=== PATIENT | female | born 1980 | race Caucasian/White ===

== ENCOUNTER 2019-12-14 11:41 | Inpatient (IN) | payer BC, SELFPAY ==
[~2019-12-14] VITALS: Ht 160 cm; Wt 69.4 kg
[2019-12-14] MEDS ORDERED: LR 1,000 ML IV ONE (12:30)
[2019-12-14] MEDS ORDERED: AMPICILLIN SODIUM 2 GM in NS 100 ML IV ONE (12:30)
[2019-12-14] MEDS ORDERED: DINOPROSTONE 10 MG SUPP VG ONE (12:30)
[2019-12-14] MEDS ORDERED: LR 1,000 ML IV SCH (12:30)
[2019-12-14] MEDS ORDERED: TERBUTALINE SULFATE 1 MG/ML VIAL SUBCUT ONE (12:30)
[2019-12-14 13:06] LABS: BASOPHILS # (AUTO) 0.1 K/uL (0.0-0.2); BASOPHILS % (AUTO) 1.2 % (0.0-2.0); EOSINOPHILS # (AUTO) 0.1 K/uL (0.0-0.4); EOSINOPHILS % (AUTO) 0.7 % (0.0-4.0); HEMATOCRIT 37.1 % (36-48); HEMOGLOBIN 12.7 g/dL (12.0-16.0); LYMPHOCYTES # (AUTO) 1.8 K/uL (1.0-5.5); LYMPHOCYTES % (AUTO) 16.2 % (20.5-51.5); MEAN CORPUSCULAR HEMOGLOBIN 31 pg (27-31); MEAN CORPUSCULAR HGB CONC 34 % (32-36); MEAN CORPUSCULAR VOLUME 90 fL (79.0-98.0); MONOCYTES # (AUTO) 0.9 K/uL (0.0-1.0); MONOCYTES % (AUTO) 8.2 % (1.7-9.3); NEUTROPHILS # (AUTO) 8.4 K/uL (1.8-7.7); NEUTROPHILS % (AUTO) 73.7 % (40.0-70.0); PLATELET COUNT (AUTO) 170 K/uL (130-430); RED BLOOD CELL COUNT(AUTO) 4.11 MIL/uL (4.2-6.2); RED CELL DISTRIBUTION WIDTH 13.1 % (9.0-15.0); WHITE BLOOD COUNT (AUTO) 11.4 K/uL (4.8-10.8)
[2019-12-14 14:46] VITALS: BP_SYST 114
[2019-12-14] MEDS ORDERED: FLU VACC QS2020-21 (6 mos & up) 0.5 ML/SYRINGE I.M. PRN (15:00)
[2019-12-14] MEDS: MORPHINE SULFATE 10 MG/ML VIAL IVP PRN ×2 (20:48→22:25)
[2019-12-14] MEDS ORDERED: ROPIVACAINE HCL/PF 0.2% 200 ML ONE (22:53)
[2019-12-14] MEDS ORDERED: fentaNYL CITRATE/PF 100 MCG/2 ML AMP ONE (22:53)
[2019-12-15] MEDS: AMPICILLIN SODIUM 1 GM in NS 50 ML IV SCH ×2 (00:30→08:13)
[2019-12-15] MEDS ORDERED: OXYTOCIN/0.9 % SODIUM CHLORIDE 1,000 ML IV SCH (04:00)
[2019-12-15] MEDS ORDERED: HYDROCORTISONE 0.5%, 28.35 GM TOPICAL CREAM TP PRN (12:30)
[2019-12-15] MEDS ORDERED: OXYTOCIN/0.9 % SODIUM CHLORIDE 1,000 ML IV ONE (12:30)
[2019-12-15] MEDS ORDERED: DERMOPLAST SPRAY TP PRN (12:30)
[2019-12-15] MEDS ORDERED: HYDROcodone/ACETAMIN 5-325 MG TAB (NORCO/ VICODIN) PO PRN (12:30)
[2019-12-15] MEDS ORDERED: DIPH-TET-PERTUS Vaccine 0.5 ML VIAL (ADACEL) I.M. PRN (12:30)
[2019-12-15] MEDS ORDERED: OXYCODONE/ACETAMINOPHEN 5-325 TABLET PO PRN (12:30)
[2019-12-15] MEDS ORDERED: WITCH HAZEL LEAF 1 MED.PAD MED.PAD TP PRN (12:30)
[2019-12-15] MEDS ORDERED: LANOLIN 7 GM OINT. TP PRN (12:30)
[2019-12-15] MEDS ORDERED: SENNOSIDES/DOCUSATE SODIUM 1 TAB TABLET(SENOKOT-S) PO PRN (12:30)
[2019-12-15] MEDS ORDERED: METHYLERGONOVINE MALEATE 0.2 MG TABLET PO PRN (12:30)
[2019-12-15] MEDS ORDERED: NALOXONE HCL 0.4 MG/ML AMP (NARCAN) IVP PRN (12:30)
[2019-12-15] MEDS ORDERED: RHO(D) IMMUNE GLOBULIN/MALTOSE 1500 UNITS/1.3 ML (WINHRO) IM PRN (12:30)
[2019-12-15] MEDS ORDERED: ANUSOL 1 EA SUPP.RECT (PREPARATION H) RC PRN (12:30)
[2019-12-15] MEDS ORDERED: IBUPROFEN 600 MG TABLET PO ONE (12:45)
[2019-12-15] MEDS ORDERED: MINERAL OIL 30 ML UDC PO ONE (17:49)
[2019-12-15] MEDS ORDERED: BUPIVACAINE /PF 0.25% 30 ML VIAL INJ ONE (17:49)
[2019-12-15] MEDS: IBUPROFEN 600 MG TABLET PO SCH ×2 (18:11→23:32)
[2019-12-15] MEDS: DOCUSATE SODIUM 100 MG CAPSULE PO PRN (18:12)
[2019-12-15] MEDS: OXYCODONE/ACETAMINOPHEN 5-325 TABLET PO PRN (18:12)
[2019-12-16] MEDS: IBUPROFEN 600 MG TABLET PO SCH ×4 (05:24→23:50)
[2019-12-16 07:34] LABS: BASOPHILS # (AUTO) 0.1 K/uL (0.0-0.2); BASOPHILS % (AUTO) 0.4 % (0.0-2.0); EOSINOPHILS # (AUTO) 0.2 K/uL (0.0-0.4); EOSINOPHILS % (AUTO) 1.4 % (0.0-4.0); HEMATOCRIT 32.7 % (36-48); LYMPHOCYTES # (AUTO) 2.9 K/uL (1.0-5.5); LYMPHOCYTES % (AUTO) 20.1 % (20.5-51.5); MEAN CORPUSCULAR HEMOGLOBIN 31 pg (27-31); MEAN CORPUSCULAR HGB CONC 34 % (32-36); MEAN CORPUSCULAR VOLUME 93 fL (79.0-98.0); MONOCYTES # (AUTO) 1.1 K/uL (0.0-1.0); MONOCYTES % (AUTO) 7.5 % (1.7-9.3); NEUTROPHILS # (AUTO) 10.1 K/uL (1.8-7.7); NEUTROPHILS % (AUTO) 70.6 % (40.0-70.0); PLATELET COUNT (AUTO) 140 K/uL (130-430); RED BLOOD CELL COUNT(AUTO) 3.51 MIL/uL (4.2-6.2); RED CELL DISTRIBUTION WIDTH 13.1 % (9.0-15.0); WHITE BLOOD COUNT (AUTO) 14.3 K/uL (4.8-10.8)
[2019-12-16] MEDS ORDERED: [UNRECOGNIZED DRUG - OTHER] EP ONE (08:38)
[2019-12-16] MEDS: OXYCODONE/ACETAMINOPHEN 5-325 TABLET PO PRN ×3 (08:57→21:07)
[2019-12-17] MEDS: OXYCODONE/ACETAMINOPHEN 5-325 TABLET PO PRN ×3 (00:38→12:52)
[2019-12-17] MEDS: IBUPROFEN 600 MG TABLET PO SCH ×2 (06:05→12:32)
[2019-12-17] MEDS: DOCUSATE SODIUM 100 MG CAPSULE PO PRN (06:06)
[2019-12-19 19:07] LABS: FTA-Ab (T PALLIDUM) Non Reactive (Non Reactive)
== END 2019-12-17 15:46 | disposition home or self-care (01) | DRG 807 ==
LOC: SPU 11:41
PROVIDERS: ADMIT Specialist; ATTEND Specialist
PROC: 10E0XZZ Delivery of Products of Conception, External Approach (ICD-10-PCS; principal; 2019-12-15)
PROC: 3E033VJ Introduction of Other Hormone into Peripheral Vein, Percutaneous Approach (ICD-10-PCS; 2019-12-15)
PROC: 3E0P7VZ Introduction of Hormone into Female Reproductive, Via Natural or Artificial Opening (ICD-10-PCS; 2019-12-15)
PROC: 3E0R3BZ Introduction of Anesthetic Agent into Spinal Canal, Percutaneous Approach (ICD-10-PCS; 2019-12-15)
PROC: 00HU33Z Insertion of Infusion Device into Spinal Canal, Percutaneous Approach (ICD-10-PCS; 2019-12-15)
DX: O41.03X0 Oligohydramnios, third trimester, not applicable or unspecified (principal); Z37.0 Single live birth; Z20.828 Contact with and (suspected) exposure to other viral communicable diseases; Z3A.39 39 weeks gestation of pregnancy
CPT/HCPCS: 36415; 85025; 86592; 86780; 86886; 86900; 86901; J0290; J2270; J2590; J3010; J3490; J7120; U0003

== ENCOUNTER 2023-09-21 14:43 | Emergency (ER) | payer BC ==
[~2023-09-21] VITALS: Ht 162.6 cm; Wt 70.3 kg
[2023-09-21 15:12] VITALS: BP_SYST 122; PULSE 85; RESP 22; TEMP 98.3; O2SAT 98
[2023-09-21 17:59] VITALS: BP_SYST 122; PULSE 85; RESP 22; TEMP 98.3; O2SAT 98
== END 2023-09-21 17:59 | disposition home or self-care (01) ==
LOC: SED 14:43
DX: G43.909 Migraine, unspecified, not intractable, without status migrainosus (principal)
CPT/HCPCS: 99281